=== PATIENT | female | born 1980 | race Caucasian/White ===

== ENCOUNTER 2018-06-22 14:55 | Emergency (ER) | payer OTHER | END 2018-06-22 23:44 | disposition home or self-care (01) | LOC: ED 14:55 ==

== ENCOUNTER 2018-06-30 19:11 | Emergency (ER) | payer OTHER ==
[2018-06-30 19:11] VITALS: BMI 30.7
[2018-06-30 19:24] VITALS: TEMP 98.3
--- NOTE | 2018-06-30 19:46 | ED PDOC ---
Arrival/HPI - General Chief Complaint: Chest Pain Time Seen by Provider: 06/30/18 19:12 Historian: Patient - History of Present Illness Narrative History of Present Illness (Text): 06/30/18 19:20 38 year old female, with past medical history of asthma, htn, dm, and endometrioid carcinoma involving left ovary, and s/p surgery, presents to emergency department complaining of left sided chest pain radiating to left arm since 12 pm this morning (7 hours). Patient informs exacerbation of pain with movement of left arm and palpation. Patient was recently seen in the ED on 06/22/18 for chest pain and left arm pain and was discharged home after negative Chest X-ray, Troponinx2, VQ scan for PE and CT of Abdomen/Pelvis. She has no SOB. Patient denies any other associated somatic complaints. Patient denies any fevers, chills, headache, dizziness, shortness of breath, dyspnea on exertion, cough, abdominal pain, nausea, vomiting, diarrhea, back pain, neck pain, or any other complaints. 06/30/18 20:23 Time/Duration: 24 hours Symptom Onset: Gradual Symptom Course: Unchanged Activities at Onset: Light Context: Home Past Medical History - Provider Review Nursing Documentation Reviewed: Yes - Infectious Disease Hx of Infectious Diseases: None - Tetanus Immunization Tetanus Immunization: Unknown - Cardiac Hx Cardiac Disorders: (chest pain) Hx Angina: Yes Hx Hypertension: Yes - Pulmonary Hx Asthma: Yes - Neurological Hx Dizziness: Yes - HEENT Hx HEENT Disorder: Yes (WEARS GLASSES) - Renal Hx Renal Disorder: No - Endocrine/Metabolic Hx Diabetes Mellitus Type 2: Yes - Hematological/Oncological Hx Anemia: Yes Hx Cancer: Yes (ovarian and uterine) Hx Chemotherapy: No - Integumentary Hx Dermatological Disorder: No - Musculoskeletal/Rheumatological Hx Arthritis: Yes (hands and back) Hx Back Pain: Yes Hx Falls: No - Gastrointestinal Other/Comment: looses stools - Genitourinary/Gynecological Hx Genitourinary Disorders: Yes (PELVIC MASS) Hx Ovarian Cancer: Yes (L OOPHORECTOMY) Other/Comment: fibroids - Psychiatric Hx Psychophysiologic Disorder: No Hx Depression: Yes Hx Substance Use: No - Past Surgical History Past Surgical History: No Previous - Surgical History Other/Comment: right ovarian cyst removed - Anesthesia Hx Anesthesia: No Hx Anesthesia Reactions: No Hx Malignant Hyperthermia: No - Suicidal Assessment Feels Threatened In Home Enviroment: No Family/Social History - Physician Review Nursing Documentation Reviewed: Yes Family/Social History: Unknown Family HX Smoking Status: Never Smoked Hx Alcohol Use: No Hx Substance Use: No Hx Substance Use Treatment: No Allergies/Home Meds Allergies/Adverse Reactions: Allergies No Known Allergies Allergy (Verified 06/30/18 19:21) Home Medications: Home Meds Medication Instructions Recorded Confirmed Meloxicam [Mobic] 7.5 mg PO DAILY 06/22/18 06/22/18 Review of Systems - Review of Systems Constitutional: absent: Fevers Eyes: absent: Vision Changes Respiratory: absent: SOB, Cough Cardiovascular: Chest Pain. absent: HAMMODNS Gastrointestinal: absent: Abdominal Pain, Diarrhea, Nausea, Vomiting Genitourinary Female: absent: Dysuria, Urine Output Changes Musculoskeletal: Arthralgias (Left arm pain). absent: Back Pain, Neck Pain Skin: absent: Rash Neurological: absent: Headache, Dizziness Endocrine: absent: Diaphoresis Psychiatric: absent: Anxiety Physical Exam Vital Signs Reviewed: Yes Vital Signs Temp Pulse Resp BP Pulse Ox 06/30/18 19:23 98.3 F 92 H 18 136/63 100 Temperature: Afebrile Blood Pressure: Normal Pulse: Regular Respiratory Rate: Normal Appearance: Positive for: Well-Appearing, Non-Toxic, Comfortable Pain Distress: None Mental Status: Positive for: Alert and Oriented X 3 - Systems Exam Head: Present: Atraumatic, Normocephalic Pupils: Present: PERRL Extroacular Muscles: Present: EOMI Conjunctiva: Present: Normal Respiratory/Chest: Present: Clear to Auscultation, Good Air Exchange, Tender to Palpation (to left anterior chest wall ). No: Respiratory Distress, Accessory Muscle Use Cardiovascular: Present: Regular Rate and Rhythm, Normal S1, S2. No: Murmurs Abdomen: No: Tenderness, Distention, Peritoneal Signs Upper Extremity: Present: Other (Decrease range of motion of left shoulder secondary to pain). No: Cyanosis, Edema Lower Extremity: Present: Normal Inspection. No: Edema Neurological: Present: GCS=15, Speech Normal Skin: Present: Warm, Dry, Normal Color. No: Rashes Psychiatric: Present: Alert, Oriented x 3, Normal Insight, Normal Concentration Medical Decision Making ED Course and Treatment: 06/30/18 19:49 Impression: 38 year old female presents to the ED for evaluation of chest pain and left arm pain. Plan: -- Labs -- CXR -- Toradol -- X-ray of Left shoulder -- Reassess and disposition Prior Visits: Notes and results from previous visits were reviewed. Progress Notes: 06/30/18 20:24 EKG shows NSR at 92bpm with LAD unchanged form prior on 06/22/17 06/30/18 20:38 Pain is worse with movement of shoulder and palptation. Trop negative. Hyperglycemic but normal gap. Given IVF and insulin. 06/30/18 20:42 06/30/18 22:16 Feels better on reevaluation 06/30/18 22:17 Patient requesting work note. Reports that she hasn't been to work in 10 days. - RAD Interpretation Radiology Orders: 06/30/18 19:23 CHEST PORTABLE [RAD] Stat SHOULDER LEFT [RAD] Stat - Medication Orders Current Medication Orders: Discontinued Medications Ketorolac Tromethamine (Toradol) 60 mg IM STAT STA Stop: 06/30/18 19:24 - Scribe Statement The provider has reviewed the documentation as recorded by the Scribe Kip Mayorga. All medical record entries made by the Scribe were at my direction and personally dictated by me. I have reviewed the chart and agree that the record accurately reflects my personal performance of the history, physical exam, medical decision making, and the department course for this patient. I have also personally directed, reviewed, and agree with the discharge instructions and disposition. Disposition/Present on Arrival - Present on Arrival Any Indicators Present on Arrival: No History of DVT/PE: No History of Uncontrolled Diabetes: No Urinary Catheter: No History of Decub. Ulcer: No History Surgical Site Infection Following: None - Disposition Have Diagnosis and Disposition been Completed?: Yes Diagnosis: Shoulder pain, Chest pain Disposition: HOME/ ROUTINE Disposition Time: 22:15 Patient Plan: Discharge Patient Problems: Current Active Problems Problem Status Onset Chest pain Acute Shoulder pain Acute Condition: GOOD Discharge Instructions (ExitCare): Heart Disease in Women (DC), Chest Pain (ED) Additional Instructions: Follow-up with your PMD within 2 days. Return to ED if condition worsens. Follow-up with cardiology within 2 days. Motrin for pain. Forms: [employer] (Malay)
[2018-06-30 20:13] LABS: BASO # 0.02 K/mm3 (0.0-2.0); BASO % 0.3 % (0.0-3.0); EOS # 0.1 (0.0-0.7); EOS % 1.1 % (1.5-5.0); HEMOGLOBIN 13.4 g/dL (12.0-16.0); LYMPH % 26.3 % (22.0-35.0); MEAN CELL VOLUME 73.2 fl (80.0-105.0); MEAN CORPUSCULAR HEMOGLOBIN 23.9 pg (25.0-35.0); MEAN CORPUSCULAR HGB CONC 32.7 g/dl (31.0-37.0); MEAN PLATELET VOLUME 10.6 fl (7.0-11.0); MONO # 0.5 (0.1-0.6); RBC 5.6 10^6/uL (3.5-6.1); RED CELL DISTRIBUTION WIDTH 13.9 % (11.5-14.5); WHITE BLOOD COUNT 7.6 10^3/uL (4.5-11.0)
[2018-06-30 20:17] LABS: TROPONIN I < 0.01 ng/mL
[2018-06-30 20:20] LABS: ALBUMIN 3.8 g/dL (3.0-4.8); ALT/SGPT 10 U/L (7-56); AST/SGOT 25 U/L (14-36); BLOOD UREA NITROGEN 7 mg/dL (7-21); CALCIUM 8.9 mg/dL (8.4-10.5); GFR NON-AFRICAN AMERICAN > 60
[2018-06-30] MEDS ORDERED: Sodium Chloride 0.9% 2,000 ML IV STA (20:20)
[2018-06-30] MEDS ORDERED: Insulin Regular 1 UNITS/0.01 ML ML IV STA (20:22)
[2018-06-30] MEDS ORDERED: Morphine 2 mg/ml ISec IVP STA (21:31)
[2018-06-30 21:44] VITALS: BP 138/86; PULSE 94; RESP 20; O2SAT 98
--- NOTE | 2018-07-01 10:48 | RAD ---
Date of service: 06/30/2018 HISTORY: L shoulder pain, chest pain COMPARISON: 06/22/2018 FINDINGS: LUNGS: No active pulmonary disease. PLEURA: No significant pleural effusion identified, no pneumothorax apparent. CARDIOVASCULAR: No aortic atherosclerotic calcification present. Normal cardiac size. No pulmonary vascular congestion. OSSEOUS STRUCTURES: No significant abnormalities. VISUALIZED UPPER ABDOMEN: Normal. OTHER FINDINGS: None. IMPRESSION: No active disease.
--- NOTE | 2018-07-01 13:19 | RAD ---
Date of service: 06/30/2018 PROCEDURE: Radiographs of the Left Shoulder HISTORY: L shoulder pain COMPARISON: No prior. FINDINGS: BONES: Normal. No fracture. JOINTS: Normal. Glenohumeral and acromioclavicular joints preserved. No osteoarthritis. SOFT TISSUES: Normal. OTHER FINDINGS: None. IMPRESSION: Normal radiographs of the left shoulder.
--- NOTE | 2018-07-01 21:14 | CARD ---
APPROVED REPORT Date of service: 06/30/2018 EKG Measurement Heart [id number] <Conclusion> Normal sinus rhythm Left axis deviation Abnormal ECG
== END 2018-06-30 22:25 | disposition home or self-care (01) ==
LOC: ED 19:11
DX: R07.9 Chest pain, unspecified (principal); M25.512 Pain in left shoulder; I10 Essential (primary) hypertension; E11.9 Type 2 diabetes mellitus without complications; Z85.42 Personal history of malignant neoplasm of other parts of uterus; Z85.43 Personal history of malignant neoplasm of ovary
CPT/HCPCS: 71045; 73030; 80053; 81025; 82948; 84484; 85025; 93005; 96372; 96374; 96375; 99284; J1885; J2270; J7030